=== PATIENT | female | born 1955 | race Caucasian/White ===

== ENCOUNTER 2019-04-16 17:09 | Outpatient (REF) | payer BC, SELFPAY ==
--- NOTE | 2019-04-16 14:00 | CER_PTH ---
PATIENT: Mitzy Uriostegui LOC: [facility] U#:[id number] AGE/SX: 63/F ROOM: RE04/16/[address]: Jung Ryan MD : 1955 BED: DIS: 04/16/2019 SPEC #: [id number] RECD: 04/16/19 17:42 STATUS: GILL RESuzy #: [id number] MINI: 04/16/19 14:[address]: Jung Ryan DEPT: Surgical Specimen RECD BY: Nupur Morrow ENTERED: 04/16/19 17:43 SP TYPE: CER OTHR DR: Brunilda Salguero APRN Tissues: 1 - CERVICAL BIOPSY Procedures: GROSS AND MICRO LEVEL 4 IMMUNOPEROXIDASE STAIN P16 IPEX Comments: [id number]
== END 2019-04-16 17:29 ==
LOC: LBN 17:09
PROVIDERS: PCP Nurse Practitioner Adult Health; Visit Provider Obstetrics & Gynecology
DX: N87.1 Moderate cervical dysplasia (principal)
CPT/HCPCS: 88305; 88342; 88361

== ENCOUNTER 2019-05-11 02:11 | Outpatient (CLI) | payer BC, SELFPAY ==
[2019-05-11 14:15] LABS: HCT 40.5 % (36.0-46.0); HGB 13.2 g/dL (12.0-15.5); Mean Corp. HGB Concentration 32.6 g/dL (32.0-36.0); Mean Corpuscular Hemoglobin 32.4 pg (27.0-33.0); Mean Corpuscular Volume 99.3 fL (80-95); Mean Platelet Volume 10.5 fL (8.0-11.0); Platelet Count 296 x1000/uL (130-400); RBC 4.08 m/cumm (4.00-5.20); RBC Distribution Width 14.3 % (11.7-14.6); White Blood Cell Count 6.25 k/cumm (4.4-10.8)
== END 2019-05-11 02:31 ==
PROVIDERS: PCP Nurse Practitioner Adult Health; Visit Provider Obstetrics & Gynecology
DX: N87.1 Moderate cervical dysplasia (principal)
CPT/HCPCS: 36415; 85027; 86850; 86900; 86901

== ENCOUNTER 2019-05-13 08:16 | Day surgery (SDC) | payer BC, SELFPAY ==
[2019-05-13 08:37] VITALS: BP 128/87; PULSE 80; RESP 18; TEMP 36.7; O2SAT 95
[2019-05-13] MEDS: Lactated Ringers 1,000 ML 125 ML IV (10:25)
[2019-05-13] MEDS: CLINDAMYCIN 900 MG/50 ML BAG 50 MG IVPB (10:26)
--- NOTE | 2019-05-13 11:00 | ENDO_PTH ---
PATIENT: Mitzy Uriostegui LOC: [facility] U#:[id number] AGE/SX: 64/F ROOM: RE05/13/[address]: Jung Ryan MD : 1955 BED: DIS: 05/13/2019 SPEC #: [id number] RECD: 05/13/19 12:51 STATUS: GILL REQ #: [id number] MINI: 05/13/19 11:[address]: Jung Ryan DEPT: Surgical Specimen RECD BY: Nupur Morrow ENTERED: 05/13/19 12:52 SP TYPE: Endo OTHR DR: Brunilda Salguero APRN Tissues: 1 - ENDOCERVICAL BX/CURRETTE 2 - CERVICAL LEEP/LOOP Procedures: GROSS AND MICRO LEVEL 4 GROSS AND MICRO LEVEL 5 Comments: [id number]
[2019-05-13] MEDS: Lidocaine 1% Multi-Dose 50 ML VIAL (11:07)
[2019-05-13 11:16] VITALS: BP 102/55; PULSE 81; RESP 15; TEMP 36.6; O2SAT 94
[2019-05-13 11:21] VITALS: BP 102/56; PULSE 76; RESP 14; TEMP 36.6; O2SAT 94
[2019-05-13 11:26] VITALS: BP 103/60; PULSE 75; RESP 15; TEMP 36.6; O2SAT 94
[2019-05-13 11:38] VITALS: BP 101/64; PULSE 71; RESP 12; TEMP 36.6; O2SAT 97
[2019-05-13 12:12] VITALS: BP 123/79; PULSE 69; RESP 18; TEMP 36.3; O2SAT 97
[2019-05-13] MEDS: HYDROcodone 5/Acetaminophen 325 TAB PO (12:12)
--- NOTE | 2019-05-14 17:42 | W.PM.OP ---
Date of service: 05/13/19 Time of Service: 11:00 Operative Note Operative Note DATE OF PROCEDURE: 05/13/19 PRE-OP DIAGNOSIS: WINDY II POST-OP DIAGNOSIS: same PROCEDURE: Cold knife conization of the cervix SURGEON: Jung Ryan ANESTHESIA: CARMEN ESTIMATED BLOOD LOSS: 10 PATHOLOGY: other (Cervical cone, ECC) COMPLICATIONS: None Patient was transported to: PACU Patient's condition: stable Findings: 1. Visible lesion with nonstaining area at the 9 o'clock position of the cervix. Consistent with previous biopsy site Procedure Description: The patient was taken to the operating room and after adequate level of general anesthesia was obtained the patient was placed in lithotomy position. The patient was prepped and draped in the usual sterile manner. A weighted speculum was placed in the vagina with good visualization of the cervix. A paracervical block with 10 cc 1% plain lidocaine solution was instilled. The cervix was prepped with Lugol's solution. A nonstaining region at approximately 9 o'clock position was noted. This is consistent with the previous biopsy site. 2 stay sutures were placed the 3 and 9 o'clock position of the cervix with 0 Vicryl. With use of an 11 blade scalpel dissection was carried from the 12 o'clock position circumferentially around the cervix and dissection was carried down to the endocervical canal. Cervical cone was removed intact and was marked at the 12 o'clock position with a single suture. An ECC was clotted with a Kevorkian curette. The bed of the cone defect was cauterized with ball cautery. A single area of bleeding was noted at the 5 o'clock position and a [id number] suture of 2-0 Vicryl through and through the cervix was used to obtain hemostasis. Excellent hemostasis was achieved. Monsel solution was applied to the cervical cone bed. The procedure was concluded at this point. Sponge, needle, and instrument counts were correct at the conclusion of the procedure and the patient was transferred to PACU stable condition.
== END 2019-05-13 12:53 | disposition home or self-care (01) ==
PROVIDERS: PCP Nurse Practitioner Adult Health; Visit Provider Obstetrics & Gynecology
PROC: 0UB97ZZ Excision of Uterus, Via Natural or Artificial Opening (ICD-10-PCS; CPT 57520; principal; 2019-05-13 10:00)
DX: N87.1 Moderate cervical dysplasia (principal); N72 Inflammatory disease of cervix uteri; I10 Essential (primary) hypertension
CPT/HCPCS: 57520; 88305; 88307; J1100; J2405

== ENCOUNTER 2019-05-21 11:07 | Outpatient (REF) | payer BC, SELFPAY | END 2019-05-21 11:27 | LOC: LBN 11:07 | PROVIDERS: PCP Nurse Practitioner Adult Health; Visit Provider Obstetrics & Gynecology | DX: R30.0 Dysuria (principal) | CPT/HCPCS: 87077; 87086; 87186 ==

== ENCOUNTER 2019-06-17 01:02 | Outpatient (CLI) | payer BC, SELFPAY ==
--- NOTE | 2019-06-17 07:53 | DI.MAMMO_ITS ---
EXAM: MG MAMMO SCREENING CLINICAL HISTORY: screening TECHNIQUE: Mammograms were interpreted according to the usual protocol including computer analysis w [employer] CAD system, tomosynthesis and C-view imaging. COMPARISON: 2009 through 2016. FINDINGS: The breasts are composed of scattered fibroglandular densities, breast density, category B. No suspi cious masses or suspicious microcalcifications are seen. There has been no significant change. Coar se calcifications are again seen posteriorly in the right axillary region. IMPRESSION: BI-RADS category 2, negative mammogram with benign findings. Yearly screening mammography is recommen ded. BI-RADS Cat 2 - Benign Findings. Breast Density - Category B - Scattered areas of fibroglandular density.
== END 2019-06-17 01:22 ==
PROVIDERS: PCP Nurse Practitioner Adult Health; Visit Provider Nurse Practitioner Family
DX: Z12.31 Encounter for screening mammogram for malignant neoplasm of breast (principal)
CPT/HCPCS: 77063; 77067

== ENCOUNTER 2020-06-16 14:01 | Outpatient (REF) | payer BC, SELFPAY ==
--- NOTE | 2020-06-16 13:00 | PAPFT_PTH ---
PATIENT: Mitzy Uriostegui LOC: [facility] U#:[id number] AGE/SX: 65/F ROOM: RE06/16/[address]: SURY Urena : 1955 BED: DIS: 06/16/2020 SPEC #: [id number] RECD: 06/16/20 17:40 STATUS: GILL RESuzy #: [id number] MINI: 06/16/20 13:[address]: Tricia Garcia DEPT: [facility] Cytology RECD BY: Nupur Morrow ENTERED: 06/16/20 17:40 SP TYPE: PAPFT ABRHAAM DR: Brunilda Salguero APRN Tissues: 1 - CX/ENDOCX FOR PAP SMEARS Procedures: PAP THIN PREP/UVM Screening HPV DNA PROBE Comments: [id number]
== END 2020-06-16 14:21 ==
LOC: LBN 14:01
PROVIDERS: PCP Nurse Practitioner Adult Health; Visit Provider Nurse Practitioner Family
DX: Z12.4 Encounter for screening for malignant neoplasm of cervix (principal); R87.611 Atypical squamous cells cannot exclude high grade squamous intraepithelial lesion on cytologic smear of cervix (ASC-H); R87.810 Cervical high risk human papillomavirus (HPV) DNA test positive
CPT/HCPCS: 88142; 87624

== ENCOUNTER 2020-07-14 01:28 | Outpatient (CLI) | payer BC, SELFPAY ==
--- NOTE | 2020-07-14 08:22 | DI.MAMMO_ITS ---
EXAM: MG MAMMO SCREENING CLINICAL HISTORY: screening. TECHNIQUE: Bilateral full field digital CC and MLO mammographic images were obtained with 3D tomosyn thesis and utilizing computer aided detection (CAD). COMPARISON: Prior mammograms dating back to 2011, the most recent being June 2019. FINDINGS: There are no CAD designations. There are no spiculated masses nor malignant appearing microcalcification groups. Calcified nodule po steriorly in the right breast is unchanged from prior studies. There is a small noncalcified nodule in the right breast best seen on cc 3D imaging and located 6 centimetres in from the mid nipple, late ral of center, unchanged. This is probably benign intramammary lymph node given its appearance. Thi s is also unchanged. There is no significant architectural distortion nor skin thickening-retraction . IMPRESSION: Stable benign findings. No radiographic evidence of malignancy. BI-RADS Category 2 - Benign Findings Breast Density - Category A - Almost entirely fatty Breast density Category C or D implies that the patient has dense breast tissue. Dense breast tissue can make it harder to find cancer on a mammogram. Dense breast tissue is also associated with an incr eased risk of breast cancer. This information about the result of the mammogram report was provided to the patient to raise their awareness. Use this report when you speak with the patient about their risks for breast cancer, which includes their family history. At that time, you may recommend additional screening tests (Ultrasoun d or MRI) as these tests may add significant information. A negative radiographic report should not delay biopsy if a dominant or clinically suspicious mass is present. Up to ten percent of cancers are not identified on mammography. A negative report may reinforce clinical impression. Adenosis and dense breasts may obscure an underlying neoplasm. False positive reports average 6 to 10%. Patient will receive a letter notifying them of these results.
== END 2020-07-14 01:48 ==
PROVIDERS: PCP Nurse Practitioner Adult Health; Visit Provider Nurse Practitioner Family
DX: Z12.31 Encounter for screening mammogram for malignant neoplasm of breast (principal); N60.81 Other benign mammary dysplasias of right breast; N60.82 Other benign mammary dysplasias of left breast
CPT/HCPCS: 77063; 77067

== ENCOUNTER 2020-07-19 17:14 | Outpatient (REF) | payer OTHER, SELFPAY ==
--- NOTE | 2020-07-19 13:15 | CER_PTH ---
PATIENT: Mitzy Uriostegui LOC: [facility] U#:[id number] AGE/SX: 65/F ROOM: RE07/19/[address]: Vilma Paulino DO : 1955 BED: DIS: 07/19/2020 SPEC #: [id number] RECD: 07/19/20 17:43 STATUS: GILL RE #: [id number] MINI: 07/19/20 13:[address]: Vilma Paulino DEPT: Surgical Specimen RECD BY: Nupur Morrow ENTERED: 07/19/20 17:44 SP TYPE: CER ABRAHAM DR: Brunilda Salguero APRN Tissues: 1 - CERVICAL BIOPSY 2 - ENDOCERVICAL BX/CURRETTE Procedures: GROSS AND MICRO LEVEL 4 Comments: [id number]
== END 2020-07-19 17:34 ==
LOC: LBN 17:14
PROVIDERS: PCP Nurse Practitioner Adult Health; Visit Provider Obstetrics & Gynecology
DX: N88.8 Other specified noninflammatory disorders of cervix uteri (principal); R87.810 Cervical high risk human papillomavirus (HPV) DNA test positive; Z87.410 Personal history of cervical dysplasia
CPT/HCPCS: 88305

== ENCOUNTER 2020-11-14 02:31 | Outpatient (CLI) | payer OTHER, SELFPAY ==
[2020-11-14 11:53] LABS: Anion Gap 9.6 mmol/L (3-11); BUN 17 mg/dL (7-18); CO2 28.4 mmol/L (21.0-32.0); CREATININE 0.9 mg/dL (0.55-1.02); Calcium 9.2 mg/dL (8.5-10.1); Chloride 103 mmol/L (98-107); Glucose 88 mg/dL (74-106); Potassium 4.1 mmol/L (3.5-5.1); Sodium 141 mmol/L (136-145)
== END 2020-11-14 02:32 | disposition home or self-care (01) ==
LOC: LBO 02:31
PROVIDERS: PCP Nurse Practitioner Adult Health; Visit Provider Nurse Practitioner Adult Health
DX: I10 Essential (primary) hypertension (principal)
CPT/HCPCS: 36415; 80048

== ENCOUNTER 2021-02-24 12:52 | Outpatient (REF) | payer OTHER, SELFPAY ==
--- NOTE | 2021-02-24 11:00 | PAPFT_PTH ---
PATIENT: Mitzy Uriostegui LOC: [facility] U#:[id number] AGE/SX: 65/F ROOM: RE02/24/[address]: Vilma Paulino DO : 1955 BED: DIS: 02/24/2021 SPEC #: [id number] RECD: 02/24/21 13:05 STATUS: GILL RESuzy #: [id number] MINI: 02/24/21 11:[address]: Vilma Paulino DEPT: [facility] Cytology RECD BY: Nupur Morrow ENTERED: 02/24/21 13:05 SP TYPE: PAPFT OTHR DR: Brunilda Salguero APRN Tissues: 1 - CX/ENDOCX FOR PAP SMEARS Procedures: PAP THIN PREP/UVM Screening HPV DNA PROBE Comments: [id number]
== END 2021-02-24 12:53 | disposition home or self-care (01) ==
LOC: LBN 12:52
PROVIDERS: PCP Nurse Practitioner Adult Health; Visit Provider Obstetrics & Gynecology
DX: Z12.4 Encounter for screening for malignant neoplasm of cervix (principal); Z87.42 Personal history of other diseases of the female genital tract; R87.610 Atypical squamous cells of undetermined significance on cytologic smear of cervix (ASC-US)
CPT/HCPCS: 88142; 87624

== ENCOUNTER 2021-07-25 09:52 | Outpatient (REF) | payer OTHER, SELFPAY ==
--- NOTE | 2021-07-25 09:30 | PAPFT_PTH ---
PATIENT: Mitzy Uriostegui LOC: [facility] U#:[id number] AGE/SX: 66/F ROOM: RE07/25/[address]: Vilma Paulino DO : 1955 BED: DIS: 07/25/2021 SPEC #: [id number] RECD: 07/25/21 12:42 STATUS: GILL RESuzy #: [id number] MINI: 07/25/21 09:[address]: Vilma Paulino DEPT: [facility] Cytology RECD BY: Nupur Morrow ENTERED: 07/25/21 12:42 SP TYPE: PAPFT OTHR DR: Brunilda Salguero APRN Tissues: 1 - CX/ENDOCX FOR PAP SMEARS Procedures: PAP THIN PREP/UVM Screening HPV DNA PROBE Comments: [id number]
--- NOTE | 2021-07-25 09:30 | ENDO_PTH ---
PATIENT: Mitzy Uriostegui LOC: [facility] U#:[id number] AGE/SX: 66/F ROOM: RE07/25/[address]: Vilma Paulino DO : 1955 BED: DIS: 07/25/2021 SPEC #: [id number] RECD: 07/25/21 12:18 STATUS: GILL REQ #: [id number] MINI: 07/25/21 09:[address]: Vilma Paulino DEPT: Surgical Specimen RECD BY: Nupur Morrow ENTERED: 07/25/21 12:18 SP TYPE: Endo OTHR DR: Brunilda Salguero APRN Tissues: 1 - ENDOCERVICAL BX/CURRETTE Procedures: GROSS AND MICRO LEVEL 4 Comments: [id number]
== END 2021-07-25 09:53 | disposition home or self-care (01) ==
LOC: LBN 09:52
PROVIDERS: PCP Nurse Practitioner Adult Health; Visit Provider Obstetrics & Gynecology
DX: N87.9 Dysplasia of cervix uteri, unspecified (principal)
CPT/HCPCS: 88142; 88305; 87624

== ENCOUNTER → 2022-01-02 00:22 | Outpatient (CLI) | payer OTHER, SELFPAY ==
--- NOTE | 2022-01-02 08:11 | DI.MAMMO_ITS ---
Exam(s) MAMMO SCREENING EXAM: MAMMO SCREENING CLINICAL HISTORY: screening, Z12.39 TECHNIQUE: Mammograms were interpreted according to the usual protocol including computer analysis w [employer] CAD system, tomosynthesis and C-view imaging. COMPARISON: 2012 through 2019 FINDINGS: The breasts are composed of mainly fatty density , Breast Density category A. No suspicious masses or suspicious microcalcifications are seen. Stable fibroadenoma upper right jania ast. No skin thickening or abnormal axillary lymph nodes are seen. There has been no significant change from prior exams. IMPRESSION: BI-RADS Cat 2 - Benign Findings - Negative Mammogram with benign findings. Yearly screening mammogra phy is recommended. Yearly screening mammography is recommended. Breast Density - Category A, fatty density. A negative radiographic report should not delay biopsy if a dominant or clinically suspicious mass is present. Up to ten percent of cancers are not identified on mammography. A negative report may reinforce clinical impression. Adenosis and dense breasts may obscure an underlying neoplasm. False positive reports average 6 to 10%. Patient will receive a letter notifying them of these results.
== END ==
PROVIDERS: PCP Nurse Practitioner Adult Health; Visit Provider Nurse Practitioner Adult Health
DX: Z12.31 Encounter for screening mammogram for malignant neoplasm of breast (principal); D24.1 Benign neoplasm of right breast
CPT/HCPCS: 77063; 77067

== ENCOUNTER 2022-09-10 09:24 | Outpatient (REF) | payer MEDICARE, BC, SELFPAY ==
--- NOTE | 2022-09-10 10:00 | PAPFT_PTH ---
PATIENT: Mitzy Uriostegui LOC: [facility] U#:[id number] AGE/SX: 67/F ROOM: RE09/10/[address]: Vilma Paulino DO : 1955 BED: DIS: 09/10/2022 SPEC #: [id number] RECD: 09/10/22 17:47 STATUS: GILL REQ #: [id number] MINI: 09/10/22 10:[address]: Vilma Paulino DEPT: [facility] Cytology RECD BY: Nupur Morrow ENTERED: 09/10/22 17:47 SP TYPE: PAPFT OTHR DR: Brunilda Salguero APRN Tissues: 1 - CX/ENDOCX FOR PAP SMEARS Procedures: PAP THIN PREP/UVM Screening HPV DNA PROBE Comments: [id number] (HPV 16 & 18/45)
== END 2022-09-10 09:25 | disposition home or self-care (01) ==
LOC: LBN 09:24
PROVIDERS: PCP Nurse Practitioner Adult Health; Visit Provider Obstetrics & Gynecology
DX: Z01.411 Encounter for gynecological examination (general) (routine) with abnormal findings (principal); Z11.51 Encounter for screening for human papillomavirus (HPV); R87.610 Atypical squamous cells of undetermined significance on cytologic smear of cervix (ASC-US); R87.810 Cervical high risk human papillomavirus (HPV) DNA test positive
CPT/HCPCS: 88142; 87624

== ENCOUNTER 2022-09-11 02:08 | Outpatient (CLI) | payer MEDICARE, BC, SELFPAY ==
[2022-09-11 07:45] LABS: Anion Gap 7.6 mmol/L (3-11); BUN 17 mg/dL (7-18); CO2 30.4 mmol/L (21.0-32.0); CREATININE 0.9 mg/dL (0.55-1.02); Calcium 9.1 mg/dL (8.5-10.1); Calculated LDL 140 mg/dL (<100); Chloride 102 mmol/L (98-107); Cholesterol 237 mg/dL (<200); Estimated GFR 70.95 (mL/min/1.73m2); Glucose 101 mg/dL (74-106); HDL Cholesterol 74 mg/dL (40-60); Potassium 4.2 mmol/L (3.5-5.1); Sodium 140 mmol/L (136-145); Triglyceride 119 mg/dL (<150)
== END 2022-09-11 02:09 | disposition home or self-care (01) ==
PROVIDERS: PCP Nurse Practitioner Adult Health; Visit Provider Nurse Practitioner Adult Health
DX: I10 Essential (primary) hypertension (principal); Z13.220 Encounter for screening for lipoid disorders
CPT/HCPCS: 36415; 80048; 80061

== ENCOUNTER 2022-10-29 11:01 | Outpatient (REF) | payer MEDICARE, BC, SELFPAY ==
--- NOTE | 2022-10-29 10:45 | CER_PTH ---
PATIENT: Mitzy Uriostegui LOC: [facility] U#:[id number] AGE/SX: 67/F ROOM: RE10/29/[address]: Vilma Paulino DO : 1955 BED: DIS: 10/29/2022 SPEC #: [id number] RECD: 10/29/22 12:34 STATUS: GILL REQ #: [id number] MINI: 10/29/22 10:[address]: Vilma Paulino DEPT: Surgical Specimen RECD BY: Nupur Morrow ENTERED: 10/29/22 12:35 SP TYPE: FABIÁN ROSARIO DR: Brunilda Salguero APRN Tissues: 1 - CERVICAL BIOPSY 2 - ENDOCERVICAL BX/CURRETTE Procedures: GROSS AND MICRO LEVEL 4 Comments: [id number]
== END 2022-10-29 11:02 | disposition home or self-care (01) ==
LOC: LBN 11:01
PROVIDERS: PCP Nurse Practitioner Adult Health; Visit Provider Obstetrics & Gynecology
DX: N88.8 Other specified noninflammatory disorders of cervix uteri (principal); R87.610 Atypical squamous cells of undetermined significance on cytologic smear of cervix (ASC-US)
CPT/HCPCS: 88305

== ENCOUNTER 2023-01-16 01:30 | Outpatient (CLI) | payer MEDICARE, BC, SELFPAY ==
--- NOTE | 2023-01-16 08:00 | DI.MAMMO_ITS ---
Exam(s) MAMMO SCREENING EXAM: MAMMO SCREENING CLINICAL HISTORY: screening TECHNIQUE: Mammograms were interpreted according to the usual protocol including computer analysis w [employer] CAD system, tomosynthesis and C-view imaging. COMPARISON: 2014 through 2021 FINDINGS: The breasts are composed of mainly fatty density , Breast Density category A. No suspicious masses or suspicious microcalcifications are seen. Stable nodule in with calcification s in the far posterior lateral right breast. No skin thickening or abnormal axillary lymph nodes are seen. There has been no significant change from prior exams. IMPRESSION: BI-RADS Cat 2 - Benign Findings. Yearly screening mammography is recommended. Breast Density - Category A, fatty density. A negative radiographic report should not delay biopsy if a dominant or clinically suspicious mass is present. Up to ten percent of cancers are not identified on mammography. A negative report may reinforce clinical impression. Adenosis and dense breasts may obscure an underlying neoplasm. False positive reports average 6 to 10%. Patient will receive a letter notifying them of these results.
== END 2023-01-16 01:50 ==
LOC: DI 01:33
PROVIDERS: PCP Nurse Practitioner Adult Health; Visit Provider Obstetrics & Gynecology
DX: Z12.31 Encounter for screening mammogram for malignant neoplasm of breast (principal)
CPT/HCPCS: 77063; 77067

== ENCOUNTER → 2023-04-18 02:26 | Outpatient (CLI) | payer MEDICARE, BC, SELFPAY ==
--- NOTE | 2023-04-18 07:45 | DI.DEXA_ITS ---
Exam(s) XR DEXA BONE DENSITY W/WO NOAH EXAM: XR DEXA BONE DENSITY W/WO NOAH CLINICAL HISTORY: screen for osteoporosis (baseline) in postmenopausal woman,z78.0 TECHNIQUE: Routine DEXA evaluation of the lumbar spine, hip, or forearm. COMPARISON: No exams were available for comparison FINDINGS: Performed on a Hologic unit. Lateral image: No compression fracture evident. Lumbar Spine total T-score: 0.1 Hip total T-score:Not performed. Bilateral hip prostheses. Forearm total T-score: -0.9 IMPRESSION: Bone mineral density measures in the normal range. Fracture risk is no. Note: Any spine fracture indicates 5x risk for subsequent spine fracture and 2x risk for subsequent h ip fracture. World Health Organization criteria for BMD interpretation classify patients: Normal...... T- Score at or above -1.0 Osteopenic... T- Score between -1.0 and -2.5 Osteoporosis... T-Score at or below -2.5
== END ==
PROVIDERS: PCP Nurse Practitioner Adult Health; Visit Provider Nurse Practitioner Adult Health
DX: Z78.0 Asymptomatic menopausal state (principal); Z12.31 Encounter for screening mammogram for malignant neoplasm of breast
CPT/HCPCS: 77080

== ENCOUNTER 2023-10-11 08:55 | Outpatient (REF) | payer MEDICARE, BC, SELFPAY ==
--- NOTE | 2023-10-11 08:30 | PAPFT_PTH ---
PATIENT: Mitzy Uriostegui LOC: [facility] U#:[id number] AGE/SX: 68/F ROOM: RE10/11/[address]: Vilma Paulino DO : 1955 BED: DIS: 10/11/2023 SPEC #: [id number] RECD: 10/11/23 12:53 STATUS: GILL REQ #: [id number] MINI: 10/11/23 08:[address]: Vilma Paulino DEPT: [facility] Cytology RECD BY: Nupur Morrow ENTERED: 10/11/23 12:54 SP TYPE: PAPFT OTHR DR: Brunilda Salguero APRN Tissues: 1 - CX/ENDOCX FOR PAP SMEARS Procedures: PAP THIN PREP/UVM Screening HPV DNA PROBE Comments: [id number]
== END 2023-10-11 08:56 | disposition home or self-care (01) ==
LOC: LBN 08:55
PROVIDERS: PCP Nurse Practitioner Adult Health; Visit Provider Obstetrics & Gynecology
DX: Z01.419 Encounter for gynecological examination (general) (routine) without abnormal findings (principal); Z11.51 Encounter for screening for human papillomavirus (HPV); Z87.410 Personal history of cervical dysplasia; R87.610 Atypical squamous cells of undetermined significance on cytologic smear of cervix (ASC-US); R87.810 Cervical high risk human papillomavirus (HPV) DNA test positive
CPT/HCPCS: 88142; 87624

== ENCOUNTER 2024-04-02 03:07 | Outpatient (CLI) | payer MEDICARE, BC, SELFPAY ==
[2024-04-02 08:09] LABS: Hemoglobin A1C 5.7 % (<5.7)
[2024-04-02 08:10] LABS: Anion Gap 9.6 mmol/L (3-11); BUN 17 mg/dL (7-18); CO2 29.4 mmol/L (21.0-32.0); CREATININE 0.9 mg/dL (0.55-1.02); Calcium 9.3 mg/dL (8.5-10.1); Calculated LDL 130 mg/dL (<100); Chloride 102 mmol/L (98-107); Cholesterol 219 mg/dL (<200); Estimated GFR 70.51 (mL/min/1.73m2); Glucose 105 mg/dL (74-106); HDL Cholesterol 63 mg/dL (40-60); Potassium 3.9 mmol/L (3.5-5.1); Sodium 141 mmol/L (136-145); Triglyceride 132 mg/dL (<150)
== END 2024-04-02 03:08 | disposition home or self-care (01) ==
LOC: LBO 03:07
PROVIDERS: Absent Provider Nurse Practitioner Adult Health; PCP Nurse Practitioner Adult Health; Referring Provider Nurse Practitioner Adult Health; Visit Provider Nurse Practitioner Adult Health
DX: R73.01 Impaired fasting glucose (principal); I10 Essential (primary) hypertension; Z13.220 Encounter for screening for lipoid disorders
CPT/HCPCS: 36415; 80048; 80061; 83036

== ENCOUNTER 2024-05-05 01:02 | Outpatient (CLI) | payer MEDICARE, BC, SELFPAY ==
--- NOTE | 2024-05-05 08:12 | DI.MAMMO_ITS ---
Exam(s) MAMMO SCREENING EXAM: MAMMO SCREENING CLINICAL HISTORY: screening,z12.39. TECHNIQUE: Bilateral full field digital CC and MLO mammographic images were obtained with 3D tomosyn thesis and utilizing computer aided detection (CAD). COMPARISON: Prior mammograms were reviewed. FINDINGS: There has been no significant change in the appearance and distribution of the fibroglandular tissue. Partially calcified benign nodule posteriorly in the right breast is unchanged from prior mammograms and probably represents a calcified fibroadenoma. There are no new spiculated masses nor new malignant appearing microcalcification groups. There is no significant architectural distortion nor skin thickening-retraction. IMPRESSION: No radiographic evidence of malignancy. BI-RADS Category 2 - Benign Findings Breast Density - Category B - Scattered areas of fibroglandular density Breast density Category C or D implies that the patient has dense breast tissue. Dense breast tissue can make it harder to find cancer on a mammogram. Dense breast tissue is also associated with an incr eased risk of breast cancer. This information about the result of the mammogram report was provided to the patient to raise their awareness. Use this report when you speak with the patient about their risks for breast cancer, which includes their family history. At that time, you may recommend additional screening tests (Ultrasoun d or MRI) as these tests may add significant information. A negative radiographic report should not delay biopsy if a dominant or clinically suspicious mass is present. Up to ten percent of cancers are not identified on mammography. A negative report may reinforce clinical impression. Adenosis and dense breasts may obscure an underlying neoplasm. False positive reports average 6 to 10%. Patient will receive a letter notifying them of these results.
== END 2024-05-05 01:22 ==
LOC: DI 01:02
PROVIDERS: PCP Nurse Practitioner Adult Health; Visit Provider Nurse Practitioner Adult Health
DX: Z12.31 Encounter for screening mammogram for malignant neoplasm of breast (principal)
CPT/HCPCS: 77063; 77067

== ENCOUNTER 2025-06-16 01:30 | Outpatient (CLI) | payer MEDICARE, BC, SELFPAY ==
[2025-06-16 08:19] LABS: Anion Gap 7.5 mmol/L (3-11); BUN 15 mg/dL (9-23); CO2 29.5 mmol/L (20.0-31.0); Calcium 9.0 mg/dL (8.3-10.6); Chloride 104 mmol/L (98-107); Cholesterol 219 mg/dL (<200); Glucose 102 mg/dL (74-106); HDL Cholesterol 63 mg/dL (>40); Potassium 4.0 mmol/L (3.5-5.1); Sodium 141 mmol/L (136-145)
== END 2025-06-16 01:31 | disposition home or self-care (01) ==
LOC: LBO 01:30
PROVIDERS: PCP Nurse Practitioner Adult Health; Visit Provider Nurse Practitioner Adult Health
DX: R73.01 Impaired fasting glucose (principal); I10 Essential (primary) hypertension
CPT/HCPCS: 36415; 80048; 80061